=== PATIENT | female | born 1950 | race Hispanic/Latino ===

== ENCOUNTER 2021-10-09 09:44 | Outpatient (CLI) | payer OTHER | END 2021-10-09 09:45 | disposition home or self-care (01) | LOC: CSHMAMMO 09:44 | PROVIDERS: ATTEND Internal Medicine | DX: Z12.31 Encounter for screening mammogram for malignant neoplasm of breast (principal); Z80.3 Family history of malignant neoplasm of breast | CPT/HCPCS: 77063; 77067 ==

== ENCOUNTER 2024-02-16 00:45 | Inpatient (IN) | payer MEDICARE ==
[2024-02-16] MEDS ORDERED: Ibuprofen 200 MG TAB ONE (01:33)
[2024-02-16] MEDS ORDERED: Ondansetron ODT 4 MG TAB ONE (01:33)
[2024-02-16 02:07] LABS: ALT (SGPT) 41 U/L (8-55); AST (SGOT) 44 U/L (5-34); Albumin 3.4 g/dL (3.4-4.8); Alkaline Phosphatase 109 U/L (40-110); Anion Gap 14 mmol/L (10-20); BUN (Urea Nitrogen) 20 mg/dL (9.8-20.1); Calc. Creatinine Clearance 0 mL/min (70-130); Calcium 10.1 mg/dL (7.8-10.44); Carbon Dioxide 20 mmol/L (23-31); Chloride 104 mmol/L (98-107); Estimated GFR 66; Globulin 3.4 g/dL (2.4-3.5); Glucose 142 mg/dL (83-110); Lipase 27 U/L (8-78); Potassium 3.9 mmol/L (3.5-5.1); Protein, Total 6.8 g/dL (5.8-8.1); Sodium 134 mmol/L (136-145)
[2024-02-16 02:08] LABS: #Basophils 0.03 10x3/uL (0.0-0.2); #Eosinphils 0.03 10x3/uL (0.0-0.5); #Monocytes 0.52 10x3/uL (0.0-1.1); #Neutrophils 12.23 10x3/uL (1.5-8.4); %Basophils 0.2 % (0.0-2.0); %Eosinophils 0.2 % (0.0-6.0); %Lymphocytes 4.7 % (18.0-47.0); %Monocytes 3.9 % (0.0-10.0); %Neutrophils 90.8 % (40.0-75.0); Hematocrit 38.1 % (34.9-44.5); Hemoglobin 13.5 g/dL (12.0-15.5); Mean Corpuscular HGB CONC 35.4 g/dL (32.0-36.0); Mean Corpuscular Hemoglobin 32.8 pg (27.0-33.0); Mean Corpuscular Volume 92.5 fl (81.6-98.3); Platelet Count 141 10x3/uL (150-450); RBC Distribution Width 12.5 % (11.5-14.5); Red Blood Cell (RBC) Count 4.12 10x6/uL (3.90-5.03); White Blood Cell (WBC) Count 13.5 10x3/uL (3.5-10.5)
[2024-02-16 02:22] LABS: Influenza A by NAA Not Detected (NotDetected); Influenza B by NAA Not Detected (NotDetected); SARS-CoV-2 NAA Rapid Test Not Detected (NotDetected)
[2024-02-16 02:58] LABS: Bilirubin Neg (Negative); Blood, Urine 10 (Negative); Clarity Clear (Clear); Glucose, Urine (Dipstick) Normal (Negative); Ketone, Urine Negative (Negative); Leukocyte 25 (Negative); Nitrite Negative (Negative); Protein, Urine (Dipstick) 15 mg/dl (Neg-Trace)
[2024-02-16] MEDS ORDERED: cefTRIAXone (ROCEPHIN) 1 GM VIAL ONE (03:03)
[2024-02-16 03:11] LABS: CAUTI Indications for Culture Fever or rigors; RBC/HPF 0-3 HPF (0-3)
[2024-02-16 03:12] LABS: Bacteria/HPF 1+ HPF (None Seen); Squamous Epithelial 0-3 HPF (0-3)
[2024-02-16 03:13] LABS: Urine Culture Reflex No No
[2024-02-16] MEDS ORDERED: Acetaminophen 325 MG TAB ONE (04:10)
[2024-02-16] MEDS ORDERED: Calcium Carbonate 500 MG ChewTAB PO PRN (04:45)
[2024-02-16] MEDS ORDERED: HumaLOG 300 UNITS/3 ML VIAL SC PRN (04:45)
[2024-02-16] MEDS ORDERED: Dextrose 50% Abboject 50 ML SYRINGE SLOW IVP PRN (04:45)
[2024-02-16] MEDS ORDERED: Ondansetron PF 4 MG/2 ML Vial IVP PRN (04:45)
[2024-02-16] MEDS ORDERED: Dextrose 5% in Water 1,000 ML IV PRN (04:45)
[2024-02-16] MEDS ORDERED: Senokot S 8.6-50 MG TAB PO PRN (04:45)
[2024-02-16] MEDS ORDERED: Guaifenesin DM 100-10/5 ML UDCUP PO PRN (04:45)
[2024-02-16] MEDS ORDERED: Glucagon 1 MG/ML KIT IM PRN (04:45)
[2024-02-16 05:44] VITALS: BMI 34.5
[2024-02-16] MEDS: Levothyroxine Sodium 125 MCG TAB PO SCH (06:05)
[2024-02-16] MEDS: Lactated Ringer's 500 ML IV SCH (06:05)
[2024-02-16] MEDS: Lactated Ringer's 1,000 ML IV SCH (06:05)
[2024-02-16] MEDS: Pantoprazole DR 40 MG TAB PO SCH (08:48)
[2024-02-16] MEDS: metFORMIN 500 MG TAB PO SCH (08:48)
[2024-02-16] MEDS: Aspirin 81 mg Enteric Coated Tablet PO SCH (08:48)
[2024-02-16] MEDS: Icosapent Ethyl 1 GM CAPSULE PO SCH ×2 (08:50→20:26)
[2024-02-16] MEDS: Sodium Chloride 0.9% 1,000 ML IV SCH (17:33)
[2024-02-16] MEDS: Atorvastatin Calcium 40 MG TAB PO SCH (20:26)
[2024-02-16] MEDS: Enoxaparin 40 MG (0.4 mL) SYRINGE SC SCH (20:27)
[2024-02-16] MEDS: Acetaminophen 325 MG TAB PO PRN (23:38)
[2024-02-17 03:37] LABS: #Basophils 0.02 10x3/uL (0.0-0.2); #Monocytes 0.65 10x3/uL (0.0-1.1); #Neutrophils 4.77 10x3/uL (1.5-8.4); %Basophils 0.3 % (0.0-2.0); %Eosinophils 1.4 % (0.0-6.0); %Lymphocytes 20.8 % (18.0-47.0); %Monocytes 9.2 % (0.0-10.0); %Neutrophils 67.9 % (40.0-75.0); Hemoglobin 11.4 g/dL (12.0-15.5); Mean Corpuscular HGB CONC 34.5 g/dL (32.0-36.0); Mean Corpuscular Hemoglobin 32.3 pg (27.0-33.0); Mean Corpuscular Volume 93.5 fl (81.6-98.3); Mean Platelet Volume 9.2 fl (7.4-10.4); Platelet Count 126 10x3/uL (150-450); RBC Distribution Width 12.8 % (11.5-14.5); Red Blood Cell (RBC) Count 3.53 10x6/uL (3.90-5.03)
[2024-02-17 03:54] LABS: Anion Gap 9 mmol/L (10-20); BUN (Urea Nitrogen) 12 mg/dL (9.8-20.1); CK (CPK) 131 U/L (29-168); Calc. Creatinine Clearance 106 mL/min (70-130); Calcium 9.3 mg/dL (7.8-10.44); Carbon Dioxide 23 mmol/L (23-31); Chloride 112 mmol/L (98-107); Estimated GFR 93; Glucose 93 mg/dL (83-110); Sodium 140 mmol/L (136-145)
[2024-02-17] MEDS: cefTRIAXone\\ROCEPHIN 1 GM in Sodium Chloride 0.9% 100 ML IVPB SCH (04:24)
[2024-02-17 04:48] VITALS: TEMP 97.9
[2024-02-17] MEDS: Levothyroxine Sodium 125 MCG TAB PO SCH (05:55)
[2024-02-17 07:52] VITALS: BP 121/59
[2024-02-17] MEDS: Atorvastatin Calcium 40 MG TAB PO SCH (08:49)
[2024-02-17] MEDS: Sertraline 100 MG TAB PO SCH (08:52)
[2024-02-17] MEDS: metFORMIN 500 MG TAB PO SCH (09:04)
== END 2024-02-17 10:45 | disposition home or self-care (01) | DRG 872 ==
LOC: CSHERS 00:45 → CSHTELE 05:27
PROVIDERS: ADMIT Student in an Organized Health Care Education/Training Program; ATTEND Internal Medicine
DX: A41.9 Sepsis, unspecified organism (principal); N10 Acute pyelonephritis; I10 Essential (primary) hypertension; E78.5 Hyperlipidemia, unspecified; E11.9 Type 2 diabetes mellitus without complications; E03.9 Hypothyroidism, unspecified; K21.9 Gastro-esophageal reflux disease without esophagitis; I49.5 Sick sinus syndrome; Z95.0 Presence of cardiac pacemaker; Z90.49 Acquired absence of other specified parts of digestive tract; Z79.84 Long term (current) use of oral hypoglycemic drugs; Z79.899 Other long term (current) drug therapy; I95.9 Hypotension, unspecified
CPT/HCPCS: 36415; 36416; 71045; 74176; 80048; 80053; 81001; 82550; 83605; 83690; 85025; 87040; 87077; 87086; 93005; 96361; 96365; J0696; J3490; J7050; J7120; Q0162